=== PATIENT | male | born 1990 | race Caucasian/White ===

== ENCOUNTER 2021-03-11 11:36 | Emergency (ER) | payer OTHER ==
[~2021-03-11 11:36] MED LIST: IBUPROFEN800 MG PO; VIBRAMYCIN100 MG PO
[2021-03-11 13:34] LABS: BASOPHIL 1.4 % (0-2); EOSINOPHIL 3.1 % (0-5); HCT 44.9 % (42.0-52.0); HGB 14.6 g/dl (13.2-18.0); LYMPHOCYTE 34.9 % (15-48); MCH 29.8 pg (25.0-31.0); MCHC 32.5 g/dL (32.0-36.0); MCV 91.6 fL (78.0-100.0); MPV 11.2 fL (6.0-9.5); NEUTROPHIL 49.3 % (41-80); NRBC 0; PLT 188 K/uL (150-400); RDW 12.8 % (11.5-14.0); WBC 6.5 K/uL (4.0-10.5)
[2021-03-11] MEDS ORDERED: KEFLEX250 MG PO (13:41)
[2021-03-11] MEDS ORDERED: BACTRIM DS TAB1 EACH PO (13:41)
[2021-03-11 13:52] LABS: BUN/CREAT RATIO (CALC) 13.3 RATIO; CREATININE 0.98 mg/dL (0.67-1.17)
== END 2021-03-11 14:24 | disposition home or self-care (01) ==
LOC: FER 11:36
PROVIDERS: Nurse Practitioner Family
DX: L02.416 Cutaneous abscess of left lower limb (principal); I10 Essential (primary) hypertension; J45.909 Unspecified asthma, uncomplicated; F17.210 Nicotine dependence, cigarettes, uncomplicated; Z23 Encounter for immunization
CPT/HCPCS: 36415; 80048; 85025; 87070; 87186; 87205; 90471; 90715